=== PATIENT | male | born 2005 | race African-American/Black ===

== ENCOUNTER 2025-07-19 09:17 | Emergency (ER) | payer MEDICAID, OTHER ==
[~2025-07-19] VITALS: Ht 172.7 cm; Wt 78.0 kg
[2025-07-19 09:19] VITALS: O2SAT 100
[2025-07-19] MEDS: SODIUM CHLORIDE 0.9% 1,000 ML IV ONE (09:58)
[2025-07-19 10:01] LABS: BASOPHILS % 0.2 % (0.0-2.0); EOSINOPHILS % 0.3 % (0.0-5.0); HEMATOCRIT. 44.3 % (42.0-52.0); HEMOGLOBIN. 14.5 g/dL (14.0-18.0); LYMPHOCYTES % 17.2 % (20.0-50.0); MEAN PLATELET VOLUME 8.4 fl (7.4-10.4); MONOCYTES % 6.4 % (2.0-8.0); NEUTROPHILS % 75.9 % (40.0-76.0); PLATELET 297 x1000/uL (130-400); RED BLOOD CELL COUNT 4.72 mill/uL (4.7-6.1); RED CELL DISTRIBUTION WIDTH 13.7 % (11.6-14.6)
[2025-07-19 10:15] LABS: CREATININE 1.2 mg/dL (0.6-1.3); UREA NITROGEN BLOOD 20 mg/dL (9-23)
[2025-07-19 12:31] VITALS: BP 136/82; PULSE 84; RESP 22; TEMP 37.1; O2SAT 100
== END 2025-07-19 13:21 | disposition short-term general hospital (02) ==
LOC: ER 09:17
DX: M79.10 Myalgia, unspecified site (principal); R74.8 Abnormal levels of other serum enzymes; I10 Essential (primary) hypertension
CPT/HCPCS: 80048; 82550; 85025; 36415; 71045; 72170; 96360; 99285; J7030; Z7610 ×2; 99284